=== PATIENT | female | born 1995 | race Caucasian/White ===

== ENCOUNTER 2017-09-14 14:42 | Emergency (ER) | payer MEDICAID ==
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
== END 2017-09-14 17:04 | disposition home or self-care (01) ==
LOC: JP.ED 14:42
DX: T22.612A Corrosion of second degree of left forearm, initial encounter (principal); Z91.040 Latex allergy status; Z88.8 Allergy status to other drugs, medicaments and biological substances; Z79.899 Other long term (current) drug therapy
CPT/HCPCS: 99283